=== PATIENT | female | born 1995 | race Caucasian/White ===

== ENCOUNTER 2024-03-31 07:45 | Emergency (ER) | payer SELFPAY ==
[2024-03-31] VITALS (13 sets, daily range): BP systolic 93–136; BP diastolic 54–78; PULSE 70–109; RESP 20; TEMP 36.7; O2SAT 72–100
--- NOTE | 2024-03-31 08:09 | ED.GENADUL_ITS ---
Discharge Plan Disposition Patient Disposition: Home Condition: Stable Discharge Details Clinical Impression: Vomiting, Food poisoning Primary Care Provider: Bella Dudley ED Provider: Maki Martinez Home Meds and New Rx's Prescriptions: New ondansetron 4 mg tablet,disintegrating 4 mg PO Q8H PRNQty: 10 0RF No Action Excedrin Extra Strength 250-250-65 mg tablet 1 tab PO ONCE Adult 50 Plus Probiotic 4 billion cell capsule 4,000 mmu cells PO DAILY triamcinolone acetonide 0.1 % ointment 1 applic topical BID Qty: 80 1RF Rx Instructions: apply twice daily to left foot and toenails twice daily for 4 weeks. bupropion HCl [Wellbutrin XL] 300 mg tablet extended release 24 hr 300 mg PO QAM Qty: 90 1RF lisdexamfetamine [Vyvanse] 30 mg capsule 30 mg PO DAILY MDD 30 mg Qty: 28 0RF propranolol 10 mg tablet 10 mg PO BID PRN (Reason: anxiety) Qty: 30 1RF fluoxetine [Prozac] 40 mg capsule 40 mg PO DAILY Qty: 90 3RF fluoxetine [Prozac] 20 mg capsule 20 mg PO DAILY Qty: 90 3RF Discharge Instructions Instructions: Food Poisoning (DC) Additional Instructions: You were seen in the emergency department today for evaluation of food poisoning and vomiting. In our department a full physical examination performed and had laboratory studies that were reassuring, though we did discuss that your white blood cell count was elevated, most likely in the setting of your active vomiting. You received medications and were able to tolerate oral fluids, and should continue to drink lots of water to stay hydrated at home. I have sent you a prescription for a medication called Zofran which can be used as needed for nausea and vomiting. Please follow-up with your primary care provider in the next few days to discuss this visit and any symptoms that change, worsen, or persist. Thank you for allowing us to be part of your care. Discharge Data Discharge Date/Time-TO BE ENTERED AT DEPARTURE: 03/31/24 10:54 HPI General Mode of arrival: ambulatory . Date/Time Provider Initiated Documentation: 03/31/24 07:55 . Limitations to Documentation: no limitations . Information obtained by: patient, family and old records reviewed . HPI Narrative: HPI: This is a 29-year-old female patient with a history of endometriosis, ADHD, depression and anxiety who is presenting for evaluation of nausea and vomiting. The patient and her parents report that they think she ate a bad sandwich last night, she started to feel unwell around bedtime. She woke up at 1:30 in the morning and has had profuse nausea and vomiting throughout the rest of the morning. She tried one of her mom's Phenergan's without improvement in her symptoms. States that she has not had any diarrhea, has not had abdominal pain, was in her normal state of health prior to this event. She uses an IUD for prevention. Exam: Gen: Awake and alert, in no apparent distress, appears uncomfortable HEENT: Non-icteric sclera Neck: Supple Lungs: No apparent respiratory distress, normal respiratory effort. CV: Appears well perfused, heart with regular rate and rhythm, strong distal pulses Abdomen: Non-distended, soft, nontender to palpation without rigidity, rebound, or guarding MSK: Moves 4 extremities without apparent limitation in ROM Skin: Visualized skin without rashes, cyanosis. Neuro: Normal Gait, no obvious focal deficits or facial asymmetry. Speaks in full, clear sentences. Psych: Appropriate for situation. MDM: This is a 29-year-old female patient presenting for evaluation of nausea and vomiting. Differential includes but is not limited to food poisoning, gastritis, peptic ulcer disease, pancreatitis, certainly considered etiologies such as cholecystitis, hepatitis, appendicitis, diverticulitis, though the patient's lack of abdominal pain makes these less likely. She has no urinary symptoms to suggest UTI, has no pelvic pain to increase my concern for ectopic , ovarian torsion, PID/TOA. We will obtain laboratory studies to include CBC, CMP, magnesium, and lipase. I will provide the patient with a dose of Zofran for initial management of her symptoms. Given the brief duration of symptoms I have a lower concern for severe dehydration that would require empiric fluid resuscitation. I also do not see an indication at this time to proceed with advanced imaging given her benign abdominal examination. ED Course: I reviewed the patient's laboratory studies, which show a leukocytosis to 20, no anemia or thrombocytopenia, and this is likely in the setting of active vomiting. Mildly elevated anion gap to 20, no other electrolyte derangements, evidence of severe kidney dysfunction or liver disease. Lipase is low. The patient received 2 doses of Zofran, and had resolution of her nausea and was able to tolerate a large amount of oral fluids. I am reassured that she will be able to maintain her hydration in the outpatient environment, and food poisoning is the most likely etiology of her symptoms. Abdominal examination r emains benign. At this time, the patient has had a full medical evaluation and is safe for discharge to home. They are hemodynamically stable, ambulatory, and tolerating PO. They are understanding of the follow-up plan and return precautions. They left our facility without incident. Maki Martinez MD Related Data Home Medications ?Medication ?Instructions ?Recorded ?Confirmed [id number] 250 1 tab PO ONCE 02/13/24 03/31/24 mg-250 mg-65 mg tablet (Excedrin Extra Strength) lactobacillus combination no.9 4 4,000 mmu cells PO DAILY 02/13/24 03/31/24 billion cell capsule (Adult 50 Plus Probiotic) triamcinolone acetonide 0.1 % 1 applic topical BID eczema #80 02/13/24 03/31/24 topical ointment grams bupropion HCl 300 mg 24 hr tablet, 300 mg PO QAM #90 tabs 03/05/24 03/31/24 extended release (Wellbutrin XL) lisdexamfetamine 30 mg capsule 30 mg PO DAILY #28 caps 03/18/24 03/31/24 (Vyvanse) propranolol 10 mg tablet 10 mg PO BID PRN anxiety #30 tabs 03/27/24 03/31/24 fluoxetine 20 mg capsule (Prozac) 20 mg PO DAILY #90 caps 03/28/24 03/31/24 fluoxetine 40 mg capsule (Prozac) 40 mg PO DAILY #90 caps 03/28/24 03/31/24 ondansetron 4 mg disintegrating 4 mg PO Q8H PRN #10 tabs 03/31/24 tablet Previous Rx's ?Medication ?Instructions ?Recorded triamcinolone acetonide 0.1 % 1 applic topical BID eczema #80 02/13/24 topical ointment grams bupropion HCl 300 mg 24 hr tablet, 300 mg PO QAM #90 tabs 03/05/24 extended release (Wellbutrin XL) lisdexamfetamine 30 mg capsule 30 mg PO DAILY #28 caps 03/18/24 (Vyvanse) propranolol 10 mg tablet 10 mg PO BID PRN anxiety #30 tabs 03/27/24 fluoxetine 20 mg capsule (Prozac) 20 mg PO DAILY #90 caps 03/28/24 fluoxetine 40 mg capsule (Prozac) 40 mg PO DAILY #90 caps 03/28/24 ondansetron 4 mg disintegrating 4 mg PO Q8H PRN #10 tabs 03/31/24 tablet Allergies Allergy/AdvReac Type Severity Reaction Status Date / Time amoxicillin Allergy Intermediate Skin Rash Unverified 03/31/24 07:55 cephalexin monohydrate (From Allergy Intermediate Skin Rash Unverified 03/31/24 07:55 Keflex) jaramillo tomatoes Allergy Intermediate Throat Uncoded 03/31/24 07:55 swelling/itching in throat General Stated Complaint: Nausea/Vomit/Diar PATRICIA: 3 Course Vital Signs Vital signs: Vital Signs Temperature 36.7 C 03/31/24 07:48 Pulse 109 H 03/31/24 07:48 Respiratory Rate 20 03/31/24 07:48 Blood Pressure 118/72 03/31/24 07:48 Pulse Oximetry 100 03/31/24 07:48 Temperature 36.7 C 03/31/24 07:48 Pulse 109 H 03/31/24 07:48 Respiratory Rate 20 03/31/24 07:48 Blood Pressure 118/72 03/31/24 07:48 Pulse Oximetry 100 03/31/24 07:48 Medical Decision Making Quality:SDOH Health Related Social Needs: No Data to Display PFSH All Active Problems (Updated 03/31/24 @ 10:17 by Maki Martinez MD) Food poisoning (Acute) Vomiting (Acute) Attention deficit hyperactivity disorder (ADHD), combined type, severe (Acute) Major depression, recurrent (Acute) SHE (generalized anxiety disorder) (Acute) Endometriosis of abdomen (Acute) Medical History (Updated 03/31/24 @ 10:17 by Maki Martinez MD) Headache Not assoc with hormone free interval when taking OCPs Dysmenorrhea since 14yo. tried 3 and 6mo of active pills. developed BTB. Now having monthly withdrawl bleeds with good results. Family History (Updated 02/13/24 @ 15:24 by Nancy Barnes) Mother Kidney stone Depression Father Kidney stone Hypertension Hyperlipidemia Maternal Grandmother Depression Diabetes Maternal Grandfather Cancer Paternal Grandmother Dementia Hyperlipidemia Hypertension Paternal Grandfather Alcohol use disorder Hypertension Hyperlipidemia Heart disease Diabetes Social History (Updated 02/13/24 @ 15:22 by Nancy Barnes) Smoking/Tobacco Use Status: Never Second Hand Exposure: Yes Smoking risk assessment performed?: Yes Alcohol Intake: current Alcohol Intake frequency: a few times a week Alcohol type: beer and wine Details: 6 or more drinks monthly Drug use: Daily Substance use type: marijuana Adopted: No Caregiver/Support person: No Household members: other Details: parents Housing: house Number of Children: 0 number of grandchildren: 0 Communication Needs: None Education Level: college Details: Bachelors Do you need help understanding health information?: Never current occupation: RN Sexually active: Yes Do you think of yourself as: straight/heterosexual Current gender identity: female What is your relationship status?: never How often do you talk on the phone with friends or family?: once per week How often do you get together with friends or relatives?: once per week How often do you attend taoism or congregation services?: decline to answer Do you belong to any clubs or organized social groups?: no Panel score (0-1 are the most socially isolated patients): 0 What type of physical activity do you participate in: walking and weight lifting Duration: 45-60 minutes/day Frequency: 3-4 times per week Special vernell needs: No Seatbelt use: always Helmet use: Yes Helmet use: always Drive intox or ride w/intox cattle driver: Yes Drive intox or w/intox cattle driver: rarely Firearms in home: Yes Firearms unloaded and locked: Yes Do you feel safe at home: Yes Would you like helpful sources: No Female Reproductive History Menstrual Age of Menarche: 12 control method: progestin IUCD
[2024-03-31] MEDS: Ondansetron 4 MG/2 ML VIAL IVP ×2 (08:11→08:42)
[2024-03-31 08:14] LABS: Abs Immature Grans 0.11 10^3/uL (0.0-0.06); Absolute Basophil Count 0.06 10^3/uL (0.0-0.2); Absolute Lymphocyte Count 0.72 10^3/uL (1.2-3.4); Absolute Monocyte Count 0.78 10^3/uL (0.1-0.8); Basophils % 0.3 %; Eosinophils % 0.2 %; HCT 39.2 % (36.0-46.0); HGB 12.6 g/dL (11.2-15.7); Immature Grans % 0.5 %; Lymphocytes % 3.6 %; MCH 22.8 pg (27.0-33.0); MCHC 32.1 % (32.0-36.0); MCV 71 fL (80-95); Monocytes % 3.9 %; Neutrophils % 91.5 %; Platelet Count 321 10^3/uL (130-400); RBC 5.53 10^6/uL (3.93-5.22); RDW 14.7 % (11.7-14.6); RDW-SD 37.1 fL; WBC 20.12 10^3/uL (4.4-10.8)
[2024-03-31 08:21] LABS: Absolute Eosinophil Count 0.04 10^3/uL (0.0-0.7); Absolute Neutrophil Count 18.41 10^3/uL (1.2-6.7)
[2024-03-31 08:27] LABS: Diff Comment RBC Morph Reviewed
[2024-03-31 08:28] LABS: Microcytosis 1+
[2024-03-31 08:32] LABS: ALT 23 U/L (14-59); AST 21 U/L (15-37); Albumin 4.3 g/dL (3.4-5.0); Alkaline Phosphatase 85 U/L (46-116); Anion Gap 20.7 mmol/L (3-11); BUN 19 mg/dL (7-18); Bilirubin, Total 0.77 mg/dL (0.2-1.0); CO2 17.3 mmol/L (21.0-32.0); CREATININE 0.8 mg/dL (0.55-1.02); Calcium 9.3 mg/dL (8.5-10.1); Chloride 105 mmol/L (98-107); Estimated GFR 102.22 (mL/min/1.73m2); Glucose 66 mg/dL (74-106); Lipase 13 U/L (<78); Magnesium 1.7 mg/dL (1.8-2.4); Potassium 3.9 mmol/L (3.5-5.1); Sodium 143 mmol/L (136-145); Total Protein 7.6 g/dL (6.4-8.2)
[2024-03-31] MEDS: Ondansetron O.D.T. 4 MG TABEF, 3 TABS/BTL PO (10:51)
== END 2024-03-31 10:54 | disposition home or self-care (01) ==
PROVIDERS: Emergency Provider Emergency Medicine; PCP Nurse Practitioner Family
DX: R11.2 Nausea with vomiting, unspecified (principal); A05.9 Bacterial foodborne intoxication, unspecified
CPT/HCPCS: 36415; 80053; 83690; 96374; 96376; 99284; 83735; 85025; 99283; J2405

== ENCOUNTER 2024-09-10 18:17 | Outpatient (REF) | payer SELFPAY ==
--- NOTE | 2024-09-10 13:20 | PAPFT_PTH ---
PATIENT: Barbara Abbott LOC: [facility] U#:[id number] AGE/SX: 29/F ROOM: RE09/10/[address]: Bella Dudley NP : 1995 BED: DIS: 09/10/2024 SPEC #: [id number] RECD: 09/11/24 12:54 STATUS: BRE REAmada #: [id number] ETHAN: 09/10/24 13:[address]: Bella Dudley DEPT: [facility] Cytology RECD BY: Sherie Rosas Tissues: 1 - CX/ENDOCX FOR PAP SMEARS Procedures: PAP THIN PREP/UVM Screening Comments: [id number]
== END 2024-09-10 18:18 | disposition home or self-care (01) ==
LOC: LBO 18:17
PROVIDERS: PCP Nurse Practitioner Family; Visit Provider Nurse Practitioner Family
DX: Z12.4 Encounter for screening for malignant neoplasm of cervix (principal)
CPT/HCPCS: 88142